=== PATIENT | male | born 1950 | race Two or more races ===

== ENCOUNTER 2023-03-05 18:09 | Emergency (ER) | payer OTHER ==
[2023-03-05 18:19] VITALS: BP 169/84; PULSE 69; RESP 18; TEMP 98.4; BMI 27.8
[2023-03-05] MEDS ORDERED: DEXAMETHASONE SOD PHOSPHATE 10 MG/1 ML VIAL IM ONE (20:55)
[2023-03-05] MEDS ORDERED: ONDANSETRON *ODT* 4 MG TABLET SL ONE (20:55)
[2023-03-05] MEDS ORDERED: DEXAMETHASONE SOD PHOSPHATE 10 MG/1 ML VIAL ONE (21:05)
[2023-03-05] MEDS ORDERED: ONDANSETRON *ODT* 4 MG TABLET ONE (21:05)
== END 2023-03-05 21:28 | disposition home or self-care (01) ==
LOC: JER 18:09
PROC: 3E023GC Introduction of Other Therapeutic Substance into Muscle, Percutaneous Approach (ICD-10-PCS; principal; 2023-03-05)
DX: M79.605 Pain in left leg (principal); M25.552 Pain in left hip; M25.562 Pain in left knee; R53.1 Weakness; M16.12 Unilateral primary osteoarthritis, left hip
CPT/HCPCS: 72148-TC; 72192-TC; 73030-TC-RT-FY; 73552-TC-LT-FY; 73560-TC-LT-FY; 73590-TC-LT-FY; 73610-TC-LT-FY; 73630-TC-LT; 73700-TC-RT; 82962; 96372; 99285-25; J1100; Q0162